=== PATIENT | male | born 1995 | race African-American/Black ===

== ENCOUNTER 2017-10-22 12:27 | Emergency (ER) | payer SELFPAY ==
[~2017-10-22] VITALS: Ht 162.6 cm; Wt 84.0 kg
[2017-10-22 17:07] VITALS: BP 132/66
== END 2017-10-22 17:09 | disposition home or self-care (01) ==
LOC: ER 13:13
DX: S01.04XA Puncture wound with foreign body of scalp, initial encounter (principal); S01.24XA Puncture wound with foreign body of nose, initial encounter; S01.141A Puncture wound with foreign body of right eyelid and periocular area, initial encounter; F17.200 Nicotine dependence, unspecified, uncomplicated; W34.00XA Accidental discharge from unspecified firearms or gun, initial encounter; Y93.89 Activity, other specified; Y92.89 Other specified places as the place of occurrence of the external cause; Y99.8 Other external cause status
CPT/HCPCS: 70450; 99284